=== PATIENT | female | born 1990 | race African-American/Black ===

== ENCOUNTER 2017-06-05 20:32 | Emergency (ER) | payer SELFPAY ==
[~2017-06-05] VITALS: Ht 162.6 cm; Wt 99.8 kg
[~2017-06-05 20:32] MED LIST: AZITHROMYCIN250 MG ORAL; IBUPROFEN600 MG ORAL; NKM
[2017-06-05 20:55] VITALS: BP 146/84
[2017-06-05] MEDS ORDERED: AUGMENTIN 875-1 EAC1 ORAL (21:19)
[2017-06-05] MEDS ORDERED: IBUPROFEN600 MG ORAL (21:20)
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
[2017-06-05 21:38] VITALS: BP 146/84
== END 2017-06-05 21:38 | disposition home or self-care (01) ==
LOC: EMR 21:05
DX: S41.152A Open bite of left upper arm, initial encounter (principal); S61.552A Open bite of left wrist, initial encounter; Y04.1XXA Assault by human bite, initial encounter; Y92.9 Unspecified place or not applicable
CPT/HCPCS: 99284